=== PATIENT | female | born 1995 | race Caucasian/White ===

== ENCOUNTER 2017-12-31 09:50 | Emergency (ER) | payer OTHER ==
[~2017-12-31] VITALS: Ht 165.1 cm; Wt 64.0 kg
== END 2017-12-31 13:03 | disposition home or self-care (01) ==
LOC: ER 09:50
DX: M79.661 Pain in right lower leg (principal)

== ENCOUNTER 2021-02-18 04:16 | Emergency (ER) | payer OTHER ==
[~2021-02-18] VITALS: Ht 165.1 cm; Wt 63.5 kg
[2021-02-18] MEDS ORDERED: WELLBUTRIN XL300 MG (04:26)
[2021-02-18] MEDS ORDERED: BACTRIM DS TAB1 EACH PO (06:26)
[2021-02-18] MEDS ORDERED: PYRIDIUM100 MG PO (06:26)
== END 2021-02-18 06:32 | disposition home or self-care (01) ==
LOC: ER 04:16
DX: N30.90 Cystitis, unspecified without hematuria (principal)